=== PATIENT | female | born 1950 | race Caucasian/White ===

== ENCOUNTER 2019-08-12 20:38 | Inpatient (IN) ==
[2019-08-12] MEDS ORDERED: ZOFRAN IV PRN (23:37)
[2019-08-12] MEDS ORDERED: XANAX PO PRN (23:43)
[2019-08-12] MEDS ORDERED: ZANAFLEX PO PRN (23:43)
[2019-08-12] MEDS ORDERED: NORCO-10 PO PRN (23:43)
[2019-08-12] MEDS ORDERED: LEVAQUIN 500 MG/D5W 500 MG/100 ML IVPB IV SCH (23:45)
[2019-08-12] MEDS ORDERED: NS 1,000 ML IV SCH (23:45)
[2019-08-12] MEDS ORDERED: FLAGYL 500 MG/NS 500 MG/100 ML IVPB IV SCH (23:45)
[2019-08-13 00:12] LABS: URINE SOURCE CLEAN CATCH
[2019-08-13 00:21] LABS: UR EPITHELIAL CELLS <10 /HPF (<10); URINE BACTERIA 4+ /HPF; URINE RBC <10 /HPF (<10)
[2019-08-13 00:31] LABS: BILIRUBIN URINE SMALL (NEGATIVE); BLOOD URINE TRACE (NEGATIVE); COLOR YELLOW; GLUCOSE URINE NEGATIVE (NEGATIVE); KETONE URINE TRACE mg/dL (NEGATIVE); LEUKOCYTES URINE NEGATIVE (NEGATIVE); NITRITE URINE POSITIVE (NEGATIVE); PH URINE 6.5; PROTEIN URINE 50 mg/dL (NEGATIVE); TURBIDITY URINE CLEAR (CLEAR); UROBILINOGEN URINE 6 mg/dL (NORMAL)
[2019-08-13] MEDS ORDERED: ZOSYN 3.375 GM in NS 50 ML IV SCH (04:30)
[2019-08-13] MEDS ORDERED: SODIUM CHLORIDE 0.9% INJ SCH (04:30)
[2019-08-13] MEDS: NS 1,000 ML IV SCH ×2 (04:38→18:42)
[2019-08-13] MEDS: PROTONIX IV SCH (04:41)
[2019-08-13] MEDS: ZOFRAN IV PRN (04:41)
--- NOTE | 2019-08-13 05:15 | HISTORY AND PHYSICAL ---
CHIEF COMPLAINT: The patient's chief complaint is that of nausea for about 1 day prior to admission. HISTORY OF PRESENT ILLNESS: Ms. Antoinette Pineda is a 68-year-old female who has a history of diabetes as well hypothyroidism. She initially presented to [facility] where she was diagnosed as having cholecystitis. She was also noted to have markedly elevated liver enzymes. There was concern for possible gallbladder common bile duct stone. As such, was referred to [facility] for further management. The patient reports pain in the region of the right upper quadrant. She also describes having fever. No diarrhea. No constipation. AST and ALT noted to be greater than 500. Imaging of the abdomen notes thickening of the gallbladder wall. The patient has now been admitted to the floor for further management. PAST MEDICAL HISTORY: Diabetes mellitus, hypothyroidism, anxiety, as well as depression. PAST SURGICAL HISTORY: She has had gastric bypass, left knee surgery, and bilateral shoulder surgery. She has had a cast for her left ankle fracture in the past. SOCIAL HISTORY: No history of cigarette smoking. No alcohol or drug use. ALLERGIES: She is allergic to niacin, codeine, penicillin, and azithromycin. FAMILY HISTORY: Positive for cancer as well as strokes. MEDICATIONS: 1. Omeprazole 40 mg p.o. daily. 2. Metformin 1 g twice a day. 3. Naprosyn 500 mg p.o. twice a day. 4. Xanax 1 mg p.o. daily. 5. Hydrocodone/acetaminophen 10/325 1 q.6h p.r.n. 6. Levothyroxine 50 mg p.o. daily. 7. Mirtazapine 30 mg p.o. at bedtime. 8. Oxybutynin 25 mg p.o. daily. 9. Tizanidine 4 mg p.o. q.6 p.r.n. REVIEW OF SYSTEMS: Constitutional: No fever. 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 ENT: Hearing loss. No sinus problems. Cardiovascular: No chest pain. Respiratory: No cough. : No dysuria. Musculoskeletal: Joint pains. Psychiatric: Anxiety with depression. Endocrinology: Thyroid disease with diabetes. Dermatology: No skin lesions. Hematology: No bleeding problems. PHYSICAL EXAMINATION: VITAL SIGNS: Temperature 99 degrees, pulse 74, respirations 18, blood pressure 111/43, and oxygen saturation 91%. HEENT: Atraumatic, normocephalic. She is anicteric. Extraocular movements are intact. No oral lesions. NECK: No lymphadenopathy or thyromegaly. CARDIOVASCULAR: S1, S2. RESPIRATORY: There is evidence of good air entry bilaterally. ABDOMEN: Soft and nontender. No masses felt. EXTREMITIES: No evidence of edema. Central nervous system. No evidence of focal neurological deficit noted. LABORATORY DATA: CBC and CMP as well as abdominal ultrasound pending. ASSESSMENT AND PLAN: 1. Acute cholecystitis. Maintain patient NPO, IV fluids, antiemetics, analgesics, as well as antibiotics. Consult with General Surgery as well as the GI team. 2. Diabetes mellitus. Maintain patient on sliding scale insulin. Monitor blood sugar levels. Check hemoglobin A1c level. 3. Hypothyroidism. Continue levothyroxine. 4. Anxiety with depression. Continue appropriate psychiatric medications. 5. Deep vein thrombosis prophylaxis. Sequential compression devices. 6. Gastrointestinal prophylaxis. PPI. 7. Probable urinary tract infection. Check urine culture, blood cultures, and maintain patient on antibiotics. cc: Anurag Galvez MD
[2019-08-13] MEDS: DILAUDID IV PRN ×5 (05:17→22:51)
[2019-08-13] MEDS: SYNTHROID PO SCH (06:04)
[2019-08-13] MEDS ORDERED: SYNTHROID PO SCH (07:00)
[2019-08-13 07:15] LABS: HEMOGLOBIN 11.2 g/dL (12.0-16.0); LYMPH# 0.45 X1000 (1.2-3.4); LYMPH% 15.6 % (20.5-51.1); MCH 30.7 PG (27-31); MCV 95.9 FL (81-99); MONO# 0.38 X1000 (0.11-0.59); MONO% 13.2 % (1.7-9.3); MPV 10.9 FL (7.4-10.4); NEUT# 2.05 X1000 (1.4-6.5); NEUT% 71.2 % (42.2-75.2); PLT 145 X1000 (130-400); RBC 3.65 XMIL (4.2-5.4); WBC 2.88 X1000 (4.8-10.8)
--- NOTE | 2019-08-13 07:22 | GENERAL SURGERY CONSULTATION ---
DATE: 08/13/2019 REQUESTING PHYSICIAN: The hospitalist. REASON FOR CONSULTATION: Cholelithiasis and possible common bile duct obstruction. HISTORY OF PRESENT ILLNESS: A 68-year-old female who has a history of diabetes and hypothyroidism, who initially presented to [facility] for complaints of cholecystitis. She was noted to have elevated liver enzymes. There was concern about a common bile duct stone. They did not have the capability to do ERCP there so they transferred her over here. She is currently feeling a little bit better since she has been admitted. I was asked to weigh an opinion. PAST MEDICAL HISTORY: 1. Diabetes mellitus. 2. Hypothyroidism. 3. Anxiety. 4. Depression. PAST SURGICAL HISTORY: Includes previous gastric bypass, which sounds like a Jackie-en-Y gastric bypass, left knee surgery, and bilateral shoulder surgery. SOCIAL HISTORY: No history of smoking. ALLERGIES: Niacin, codeine, penicillin, and azithromycin. FAMILY HISTORY: Positive for cancer as well as strokes. HOME MEDICATIONS: Reviewed. REVIEW OF SYSTEMS: Full 14 systems reviewed and negative except as specified in HPI. PHYSICAL EXAMINATION: Vital Signs: Patient is currently afebrile. Her vital signs are stable. General: No acute distress. Alert and interactive female looks stated age. HEENT: Normocephalic, atraumatic. Pupils equal, round, and reactive to light. Mucous membranes moist. Oropharynx benign. Neck: Supple. Trachea midline. Cardiovascular: Regular rate and rhythm. Lungs: Grossly clear. Abdomen: Soft. There is some mild discomfort in the right upper quadrant, but no peritoneal signs. Extremities: Moves all extremities. Neurologic: Grossly intact. Skin: No signs of jaundice. Vascular: All extremities perfused. LABORATORY: Pending this morning. ASSESSMENT AND PLAN: A 68-year-old female with cholecystitis and possible common bile duct obstruction. 1. Cholecystitis. At this time, agree with admission. She seems to be doing well, so we will put her on a clear liquid diet. We will plan on surgical intervention tomorrow on Friday. At this time, she does have a gastric bypass with a Jackie-en-Y gastric bypass. ERCP is going to be technically difficult so we will have to do a cholangiogram at the time of the procedure to see if she actually does have an obstruction. We will follow up with morning labs. I appreciate the consult. Again, we will plan on doing surgical intervention tomorrow. 2. Multiple medical problems currently being managed by the hospitalist service. I appreciate the consult. cc: Rahul Deutsch MD
[2019-08-13 07:31] LABS: AGAP 12; ALB/GLOB RATIO 1.5; ALBUMIN 3.5 g/dL (3.5-5.0); ALKALINE PHOSPHATASE 347 U/L (32-104); BUN 12 mg/dL (8-22); CALCIUM 8.7 mg/dL (8.8-10.2); CHLORIDE 101 mmol/L (98-107); COSMO 279; CREATININE 0.6 mg/dL (0.5-0.9); ESTIMATED GFR > 60; GLUCOSE 99 mg/dL (70-104); GOT 489 U/L (10-30); GPT 431 U/L (10-36); SODIUM 140 mmol/L (136-145); TCO2 27 mmol/L (25-35); TOTAL BILIRUBIN 1.04 mg/dL (0.20-1.00); TOTAL PROTEIN 5.9 g/dL (6.3-8.3)
--- NOTE | 2019-08-13 08:41 | Diag Imaging Result Doc PS360 ---
EXAM: US ABDOMEN-COMPLETE HISTORY: cholecystits TECHNIQUE: Abdominal ultrasound COMPARISON: None. FINDINGS: The pancreas is obscured. No abdominal aortic aneurysm. The inferior vena cava is poorly seen. There is at least mild atherosclerosis. There is fatty infiltration of the liver. There are multiple stones within the gallbladder. Mild thickening to the gallbladder wall. The common bile duct measures 7 mm. Normal right kidney. No hydronephrosis. Normal left kidney. No hydronephrosis. Normal spleen. No ascites. IMPRESSION: 1.Cholelithiasis and cholecystitis. 2.There is fatty infiltration of the liver. Electronically signed by Paramjit Lopez 08/13/2019 8:39 AM
[2019-08-13] MEDS ORDERED: DITROPAN PO SCH (09:00)
[2019-08-13] MEDS: FLAGYL 500 MG/NS 500 MG/100 ML IVPB IV SCH ×2 (09:22→15:27)
--- NOTE | 2019-08-13 13:38 | PROGRESS NOTE ---
DATE: 08/13/2019 SUBJECTIVE: The patient reports pain when she eats in the right upper quadrant. OBJECTIVE: Vital Signs: Temperature 97.9 degrees. Heart rate 72, respiratory rate 16, blood pressure 134/57, O2 saturation 98% on room air. General Examination: This is a 68-year-old female lying in bed, in no acute distress. Cardiovascular: S1, S2 heard. No murmurs, gallops, or rubs. Regular rate and rhythm. Respiratory: Clear bilaterally to auscultation. No work of breathing or using accessory muscles. Abdomen: Soft, mildly tender to palpation in the right upper quadrant but no signs of peritoneal irritation. Neurological: Patient alert and oriented x3. Moves 4 extremities. LABORATORY DATA: White cell count is 2.88 with normal BMP. Total bilirubin 1.04 with AST 489, ALT 431. ASSESSMENT AND PLAN: 1. Acute cholecystitis. Patient has been evaluated by General Surgery. They are now planning to do a cholecystectomy tomorrow. Also Gastroenterology has been consulted for possible choledocholithiasis, but the abdominal ultrasound did not show any enlargement of the common bile duct, which measures 7 mm today in the abdominal ultrasound. In any case, to confirm that this patient will do intraoperative cholangiogram to see if there is any stone in the common bile duct. At this point, we will continue to monitor. If endoscopic retrograde cholangiopancreatography is needed from this patient, considering her history of bypass surgery, I think this patient will need to be transferred to a different facility to have this procedure done. As we mentioned before, if needed. 2. Diabetes mellitus type 2. We will continue with sliding scale insulin. Accu-Chek before meals and also at bedtime. 3. Hypothyroidism. We will continue home doses of levothyroxine. 4. Anxiety and depression. We will continue home medications. 5. Suspected urinary tract infection. There is no urine culture. The patient has been started on levofloxacin. We will order urine culture today. We will see what it shows. cc: Hay Dow MD
[2019-08-13] MEDS ORDERED: REMERON PO SCH (21:00)
[2019-08-13] MEDS: REMERON PO SCH (21:16)
[2019-08-13] MEDS: XANAX PO PRN (21:16)
[2019-08-14] MEDS: LEVAQUIN 500 MG/D5W 500 MG/100 ML IVPB IV SCH (01:41)
[2019-08-14] MEDS: FLAGYL 500 MG/NS 500 MG/100 ML IVPB IV SCH ×3 (02:45→18:01)
[2019-08-14] MEDS: DILAUDID IV PRN ×3 (05:30→21:41)
[2019-08-14] MEDS: SYNTHROID PO SCH ×2 (05:30→06:34)
[2019-08-14] MEDS: PROTONIX IV SCH (05:30)
--- NOTE | 2019-08-14 06:30 | GENERAL SURGERY PROGRESS NOTE ---
DATE: 08/14/2019 SUBJECTIVE: Patient seems to be doing okay. OBJECTIVE: Vital Signs: Patient is currently afebrile. Her vital signs are stable. General: No acute distress. HEENT: Normocephalic, atraumatic. Pupils equal, round, and reactive to light. Mucous membranes moist. Oropharynx benign. Neck: Supple. Trachea midline. Cardiovascular: Regular rate and rhythm. Lungs: Grossly clear. Abdomen: Soft. Some mild discomfort in the right upper quadrant. No peritoneal signs. Extremities: Moves all extremities. Neurologic: Grossly intact. Skin: No signs of jaundice. Vascular: All extremities perfused. LABORATORY: Reviewed from yesterday. Of note, bilirubin slightly up at 1. AST, ALT, and alkaline phosphatase are all elevated. ASSESSMENT AND PLAN: A 68-year-old female with a history of gastric bypass with cholecystitis and possible choledocholithiasis. Cholecystitis. At this time, we will plan on surgical intervention today. Discussed with patient the risks, benefits, and alternatives of the procedure. Risks including, but not limited to bleeding, infection, risk of anesthesia, risk of common bile duct injury, and bile leak. Given her elevated liver function tests, we will stay and try to do a cholangiogram. She does have a history of gastric bypass which would make ERCP difficult, and we might have to send the patient to another facility if she does require an ERCP given this fact. Otherwise, we will continue to monitor and plan for operation this morning. Consent will be signed. She is on antibiotics. She is NPO. cc: Rahul Deutsch MD
[2019-08-14 07:15] LABS: HEMATOCRIT 33.2 % (37.0-47.0); HEMOGLOBIN 10.7 g/dL (12.0-16.0); LYMPH# 0.37 X1000 (1.2-3.4); MCH 31.1 PG (27-31); MCHC 32.2 g/dL (33-37); MCV 96.5 FL (81-99); MONO# 0.32 X1000 (0.11-0.59); MONO% 13.9 % (1.7-9.3); NEUT# 1.62 X1000 (1.4-6.5); NEUT% 70.1 % (42.2-75.2); PLT 127 X1000 (130-400); RBC 3.44 XMIL (4.2-5.4); RDW 13.9 % (11.5-14.5); WBC 2.31 X1000 (4.8-10.8)
[2019-08-14 07:23] LABS: HEMOGLOBIN A1C 6.2 % (4.8-6.0)
[2019-08-14] MEDS ORDERED: SODIUM CHLORIDE 0.9% ONE (07:26)
[2019-08-14] MEDS ORDERED: SENSORCAINE-MPF 0.5%/EPI 1:200,000 ONE (07:26)
[2019-08-14] MEDS ORDERED: LR 1,000 ML ONE (07:27)
[2019-08-14] MEDS ORDERED: DIPRIVAN 1% ONE (07:37)
[2019-08-14] MEDS ORDERED: XYLOCAINE-MPF 2% ONE (07:39)
[2019-08-14] MEDS ORDERED: ZEMURON ONE (07:39)
[2019-08-14] MEDS ORDERED: DECADRON ONE (07:39)
[2019-08-14] MEDS ORDERED: QUELICIN (DOSE) ONE (07:39)
[2019-08-14] MEDS ORDERED: ZOFRAN ONE (07:39)
[2019-08-14 07:48] LABS: AGAP 10; ALB/GLOB RATIO 1.3; ALBUMIN 3.2 g/dL (3.5-5.0); ALKALINE PHOSPHATASE 264 U/L (32-104); BUN 5 mg/dL (8-22); CALCIUM 8.4 mg/dL (8.8-10.2); CHLORIDE 102 mmol/L (98-107); COSMO 279; CREATININE 0.5 mg/dL (0.5-0.9); ESTIMATED GFR > 60; GLUCOSE 145 mg/dL (70-104); GOT 117 U/L (10-30); GPT 221 U/L (10-36); POTASSIUM 3.8 mmol/L (3.5-5.1); SODIUM 140 mmol/L (136-145); TCO2 28 mmol/L (25-35); TOTAL BILIRUBIN 0.52 mg/dL (0.20-1.00); TOTAL PROTEIN 5.6 g/dL (6.3-8.3)
[2019-08-14] MEDS ORDERED: EPHEDRINE ONE (08:06)
[2019-08-14] MEDS ORDERED: OFIRMEV 1000 MG/ISOTONIC SOLN 1,000 MG/100 ML BOTTLE ONE (08:16)
[2019-08-14] MEDS ORDERED: FENTANYL ONE (08:16)
[2019-08-14] MEDS: DILAUDID ONE ×4 (09:09→09:29)
[2019-08-14] MEDS ORDERED: LR 500 ML ONE (09:27)
[2019-08-14] MEDS ORDERED: NORCO-5 ONE (09:27)
--- NOTE | 2019-08-14 09:30 | OPERATIVE NOTE ---
PROCEDURE DATE: 08/14/2019 PREOPERATIVE DIAGNOSES: 1. Cholecystitis. 2. History of Jackie-en-Y gastric bypass. POSTOPERATIVE DIAGNOSES: 1. Cholecystitis. 2. History of Jackie-en-Y gastric bypass. PROCEDURE: Laparoscopic cholecystectomy. SURGEON: Rahul Deutsch MD. SOLDERER DIPPER: None. ANESTHESIA: General endotracheal. OPERATIVE FINDINGS: Thickened cystic duct which was very friable, likely cystic duct occlusion with clear bile noted in the gallbladder. COMPLICATIONS: None at the time of this dictation. ESTIMATED BLOOD LOSS: 30 mL. SPECIMENS REMOVED: Gallbladder. DRAINS: A 19-Emirati HAZEL drain. BRIEF HISTORY: A 68-year-old female presenting with cholecystitis from outside facility. She had a history of gastric bypass, for which she needed cholecystectomy. The risks, benefits, and alternatives of the procedure were discussed. All questions answered. DESCRIPTION OF PROCEDURE: After informed consent was obtained, the patient brought to the operative theatre, transferred to the operating table, placed in supine position. General endotracheal anesthesia was then performed without complication. A formal time-out was then performed confirming patient, date, procedure. All in agreement. At that time, attention was given to the abdomen. An infraumbilical incision was made, through which using an Optiview technique we inserted an 11 mm trocar and connected. Insufflation pneumoperitoneum was achieved. Under direct visualization, we placed three more trocars, all 5 mm, 1 subxiphoid 2 in the right upper quadrant. Using these, gallbladder was identified. It was retracted cephalad. It was densely inflamed at the cystic duct of the infundibulum. We were able to dissect out the cystic duct and cystic artery to achieve the critical view of safety. The cystic duct itself appeared to be thickened and friable. We had drained some of the fluid in the gallbladder to facilitate exposure, and it was clear consistent with a cystic duct obstruction. We made a window around the cystic duct. It was slightly thicker than 1 cm. We exchanged the initial 5 mm trocar in the subxiphoid to an 11 mm trocar, and placed longer clips across the cystic duct. The cystic duct was very friable and tore a little bit, but we were able to get at least 2 clips across it. I was still concerned about how completely occluded it was, and so we placed an Endoloop around it. Again it was very friable and tore a little bit, but we were able to get an Endoloop around the cystic duct itself too. I did not see any bile come out of the remaining side of the cystic duct, but there was some clear bile that came out of the gallbladder side. This is likely at the junction at the cystic duct and infundibulum. We then doubly clipped and ligated the cystic artery. We had achieved the critical view of safety as best as possible. We then dissected the gall gallbladder off the gallbladder fossa, brought out through the infraumbilical incision, which had to be enlarged to accommodate the stone burden. Given the inflammation, the larger clips and the Endoloop around the cystic duct and the concern that it might still leak, I elected to place a drain. I tunneled it from the most lateral trocar site, secured it in place and placed it in the gallbladder fossa. We then irrigated out the abdomen until suction fluid was clear. We removed all trocars, disconnected insufflation. Pneumoperitoneum was released. We had to close the infraumbilical incision with 0 Vicryl [id number] stitch. She had very weak fascia, but we were able to get some tissue coverage. She also had an umbilical hernia noted. We did close all skin incisions with 4-0 Monocryl. Again, the drain was secured in place with a drain stitch. The patient tolerated the procedure well and was transferred back to the recovery room. cc: Rahul Deutsch MD
[2019-08-14] MEDS: NS 1,000 ML IV SCH (10:30)
--- NOTE | 2019-08-14 11:44 | PROGRESS NOTE ---
DATE: 08/14/2019 SUBJECTIVE: The patient reports feeling fine, having some pain in the right upper quadrant. She is back from surgery a couple of hours ago. OBJECTIVE: Vital Signs: Temperature 98.3 degrees, heart rate 81, respiratory rate 18, blood pressure 119/73, O2 saturation 97% 2 L nasal cannula. General: This is a 68-year-old female lying in bed, in no acute distress. Cardiovascular: S1, S2 heard. No murmurs, gallops, or rubs. Regular rate and rhythm. Respiratory: Clear bilaterally to auscultation. No work of breathing or using accessory muscles. Abdomen: Abdomen is diffusely tender to palpation mostly located in the right upper quadrant. Green with yellowish secretions in place. No signs of peritoneal irritation. Extremities: No clubbing, cyanosis, or edema. Peripheral pulses present in both legs. Neurological: Patient alert and oriented x3. Moves 4 extremities. LABORATORY DATA: White cell count 2.31. AST 117, ALT 221, alkaline phosphatase 264. ASSESSMENT/PLAN: 1. Acute cholecystitis status post laparoscopic cholecystectomy. Surgery performed by Dr. Deutsch this morning. Her labs including transaminase and alkaline phosphatase are improving. The abdominal ultrasound did not find any dilatation of the common bile duct. At this point, we will continue to monitor this patient closely and the intraoperative cholangiogram. 2. Diabetes mellitus type 2. We will continue with sliding scale insulin. Sugars before meals and also at bedtime. 3. Hypothyroidism. Will continue home doses of levothyroxine. 4. Anxiety and depression. We will continue home medications. 5. Acute UTI. Patient is on Levaquin. We will see what urine culture shows. cc: Hay Dow MD
[2019-08-14] MEDS: ZOFRAN IV PRN (12:29)
[2019-08-14] MEDS: PRILOSEC PO SCH (15:42)
[2019-08-14] MEDS: GLUCOPHAGE PO SCH ×2 (15:42→18:01)
[2019-08-14] MEDS: NAPROSYN PO SCH ×2 (15:43→21:40)
[2019-08-14] MEDS: NORCO-5 PO PRN (18:03)
[2019-08-14] MEDS: REMERON PO SCH (21:41)
[2019-08-14] MEDS: XANAX PO PRN (21:41)
[2019-08-15] MEDS: NS 1,000 ML IV SCH (00:51)
[2019-08-15] MEDS: LEVAQUIN 500 MG/D5W 500 MG/100 ML IVPB IV SCH (00:51)
[2019-08-15] MEDS: NORCO-5 PO PRN ×2 (00:56→06:58)
[2019-08-15] MEDS: FLAGYL 500 MG/NS 500 MG/100 ML IVPB IV SCH ×2 (03:26→10:07)
[2019-08-15 06:58] LABS: HEMATOCRIT 33.3 % (37.0-47.0); HEMOGLOBIN 10.7 g/dL (12.0-16.0); LYMPH# 0.49 X1000 (1.2-3.4); LYMPH% 16.2 % (20.5-51.1); MCH 30.7 PG (27-31); MCHC 32.1 g/dL (33-37); MCV 95.7 FL (81-99); MONO# 0.45 X1000 (0.11-0.59); MONO% 14.9 % (1.7-9.3); MPV 10.4 FL (7.4-10.4); NEUT# 2.08 X1000 (1.4-6.5); NEUT% 68.9 % (42.2-75.2); PLT 148 X1000 (130-400); RBC 3.48 XMIL (4.2-5.4); RDW 13.9 % (11.5-14.5); WBC 3.02 X1000 (4.8-10.8)
[2019-08-15] MEDS: SYNTHROID PO SCH (06:58)
--- NOTE | 2019-08-15 07:03 | GENERAL SURGERY PROGRESS NOTE ---
DATE: 08/15/2019 SUBJECTIVE: The patient seems to be doing okay. She is sore, but a different kind of sore. OBJECTIVE: Vital Signs: The patient is currently afebrile. Her vital signs are stable. General: No acute distress. Cardiovascular: Regular rate and rhythm. Lungs: Grossly clear. Abdomen: Soft, appropriately tender. HAZEL drain with serosanguineous output. ASSESSMENT AND PLAN: A 68-year-old female status post laparoscopic cholecystectomy. Postoperative state. At this time, the patient seems to be doing okay. She does not seem to have any bilious output at her Miki-Dailey drain, but will keep it for now. I think from a surgical point of view, as long she is doing okay today, she can likely be discharged home. I do not think she will need additional antibiotics at this point. Will defer to the hospitalist. cc: Rahul Deutsch MD
[2019-08-15 07:19] LABS: AGAP 10; ALB/GLOB RATIO 1.2; ALBUMIN 2.9 g/dL (3.5-5.0); ALKALINE PHOSPHATASE 202 U/L (32-104); BUN 6 mg/dL (8-22); CALCIUM 8.5 mg/dL (8.8-10.2); CHLORIDE 102 mmol/L (98-107); COSMO 276; CREATININE 0.4 mg/dL (0.5-0.9); ESTIMATED GFR > 60; GLUCOSE 120 mg/dL (70-104); GOT 37 U/L (10-30); GPT 133 U/L (10-36); POTASSIUM 3.8 mmol/L (3.5-5.1); SODIUM 139 mmol/L (136-145); TCO2 27 mmol/L (25-35); TOTAL PROTEIN 5.3 g/dL (6.3-8.3)
[2019-08-15 07:44] VITALS: BP 109/49
[2019-08-15] MEDS ORDERED: PERIDEX MT SCH (09:00)
[2019-08-15] MEDS: GLUCOPHAGE PO SCH (09:08)
[2019-08-15] MEDS: NAPROSYN PO SCH (10:07)
[2019-08-15] MEDS: PRILOSEC PO SCH (10:08)
--- NOTE | 2019-08-15 16:22 | DISCHARGE SUMMARY ---
ADMISSION DATE: 08/12/2019 DISCHARGE DATE: 08/15/2019 DISCHARGE DIAGNOSES: 1. Acute cholecystitis status post laparoscopic cholecystectomy. 2. Diabetes mellitus type 2. 3. Hypothyroidism. 4. Anxiety and depression. 5. Urinary tract infection ruled out. CONSULTATIONS: Dr. Deutsch from General Surgery. PROCEDURES: 1. Abdominal ultrasound showed cholelithiasis and cholecystitis. There is a fatty infiltration of the liver. Common bile duct measures 7 mm. Normal right kidney. 2. Laparoscopic cholecystectomy performed by Dr. Deutsch. The operative findings were thickened cystic duct which was very friable, likely cystic duct occlusion with clear bile noted in the gallbladder. HOSPITAL COURSE: This is a 68-year-old female with history of diabetes and hypothyroidism who presented to [facility] where she was diagnosed of acute cholecystitis, also markedly elevated liver enzymes. She was transferred to [facility]. There was a suspicion for acute cholecystitis and also choledocholithiasis as well. The patient was evaluated by Surgery, and we have done an abdominal ultrasound which did not show any dilation of common bile duct. Dr. Deutsch decided to operate on this patient with results as above. Patient was feeling fine. Liver function tests were normalizing really quick. We do not think that this patient has any stone, so at this point, patient is going to be discharged in stable condition. DISCHARGE PHYSICAL EXAMINATION: Vitals: Temperature 98.2 degrees, heart rate 74, respiratory rate 20, blood pressure 109/49. O2 saturation 94% on room air. General: This is a 68-year-old female lying in bed, in no acute distress. Cardiovascular: S1, S2 heard. No murmurs, gallops, or rubs. Regular rate and rhythm. Respiratory: Clear bilaterally to auscultation. No work of breathing or using accessory muscles. Abdomen: Soft, mild tender to palpation in the right upper quadrant. No signs of peritoneal irritation. Extremities: No clubbing, cyanosis, or edema. Peripheral pulses present in both legs. Neurological: The patient is alert and oriented x3. Moves 4 extremities. DISCHARGE DISPOSITION: Home to self-care. DISCHARGE MEDICATIONS: We are not going to make any changes to his current medications. We are going to add the following: Bulverde 10/325 one tablet p.o. every 4 hours as needed for pain. cc: Hay Dow MD
== END 2019-08-15 11:56 | disposition home or self-care (01) | DRG 419 ==
LOC: SUATTDRO 20:38 → DIRADM 20:38 → 4N 21:14
PROVIDERS: ATTEND Internal Medicine